=== PATIENT | female | born 1970 | race Caucasian/White ===

== ENCOUNTER 2018-03-22 00:10 | Outpatient (CLI) | payer BC, SELFPAY ==
--- NOTE | 2018-03-22 17:18 | DI.MAMMO_ITS ---
SYMPTOM/DIAGNOSIS: SCREENING, Z12.31 MAMMOGRAMS: Mammograms were interpreted according to the usual protocol including computer analysis with CAD system, tomosynthesis and C view imaging. Comparison is with prior examinations. There are scattered nodules in both breasts, which appear stable. No suspicious masses or microcalcifications are seen. The skin and axillae are unremarkable. IMPRESSION: No evidence for malignancy. Yearly mammography is recommended. Category 2, breast density B. MQSA ASSESSMENT OF FINDINGS: Negative with benign findings. Category 2. Patient will receive a letter notifying them of these results. BI-RADS category B. There are scattered areas of fibroglandular density.
== END 2018-03-22 00:30 ==
PROVIDERS: PCP Family Medicine; Visit Provider Nurse Practitioner Family
DX: Z12.31 Encounter for screening mammogram for malignant neoplasm of breast (principal)
CPT/HCPCS: 77063; 77067

== ENCOUNTER 2019-01-10 12:10 | Outpatient (REF) | payer BC, SELFPAY ==
[2019-01-10 13:02] LABS: Glucose 115 mg/dL (70-100); TSH (W/Ref FT4) 3.45 uIU/mL (0.358-3.74)
[2019-01-10 14:15] LABS: Calculated LDL 154; Cholesterol 221 mg/dL (50-200); HDL Cholesterol 52 mg/dL (40-60); Triglyceride 75 mg/dL (30-150)
[2019-01-12 05:20] LABS: Vitamin D 25 Total 21.2 ng/ml (30-100)
== END 2019-01-10 12:30 ==
LOC: NCHCN 12:10
PROVIDERS: PCP Family Medicine; Visit Provider Nurse Practitioner
DX: E03.9 Hypothyroidism, unspecified (principal); E78.5 Hyperlipidemia, unspecified; Z13.21 Encounter for screening for nutritional disorder
CPT/HCPCS: 80061; 82306; 82947; 83721; 84443

== ENCOUNTER 2019-02-01 13:57 | Outpatient (REF) | payer BC, SELFPAY ==
[2019-02-01 20:35] LABS: Hemoglobin A1C 5.7 % (4.5-6.2)
== END 2019-02-01 14:17 ==
LOC: NCHCN 13:57
PROVIDERS: PCP Family Medicine; Visit Provider Nurse Practitioner
DX: E73.9 Lactose intolerance, unspecified (principal)
CPT/HCPCS: 83036

== ENCOUNTER 2019-02-13 14:19 | Outpatient (REF) | payer BC, SELFPAY ==
--- NOTE | 2019-02-13 13:30 | PAPFT_PTH ---
PATIENT: Lisa Maddox LOC: [facility] U#:[id number] AGE/SX: 49/F ROOM: RE02/13/[address]: SOCO Quinonez : 1970 BED: DIS: 02/13/2019 SPEC #: [id number] RECD: 02/13/19 18:00 STATUS: RILEY RERahul #: [id number] JIGNESH: 02/13/19 13:[address]: Ivory Sousa DEPT: [facility] Cytology RECD BY: Karyn Villegas ENTERED: 02/13/19 18:00 SP TYPE: PAPFT OTHR DR: Alina Singh Tissues: 1 - CX/ENDOCX FOR PAP SMEARS Procedures: PAP THIN PREP/UVM Screening HPV DNA PROBE Comments: [id number]
== END 2019-02-13 14:39 ==
LOC: LBN 14:19
PROVIDERS: PCP Family Medicine; Visit Provider Nurse Practitioner Family
DX: Z12.4 Encounter for screening for malignant neoplasm of cervix (principal); Z11.51 Encounter for screening for human papillomavirus (HPV)
CPT/HCPCS: 88142; 87624

== ENCOUNTER 2019-02-16 00:32 | Outpatient (CLI) | payer BC, SELFPAY ==
--- NOTE | 2019-02-16 12:50 | DI.US_ITS ---
SYMPTOMS/DIAGNOSIS: LLQ PAIN PER PT PELVIC ULTRASOUND: The uterus measures 10.6 cm in length, 6.1 cm in height and 6.5 cm in width with an endometrial stripe thickness of 14.5 mm. There are multiple Nabothian cysts. The right ovary measures 3.5 x 2.3 x 1.9 cm. The left ovary measures 3.4 x 1.5 z 1.7 cm. There is no evidence of cul-de-sac fluid. SUMMARY: As noted above there are multiple Nabothian cysts. The examination is otherwise unremarkable.
== END 2019-02-16 00:52 ==
PROVIDERS: PCP Family Medicine; Visit Provider Nurse Practitioner Family
DX: R10.32 Left lower quadrant pain (principal); N88.8 Other specified noninflammatory disorders of cervix uteri
CPT/HCPCS: 76830; 76856

== ENCOUNTER 2019-02-22 14:04 | Outpatient (REF) | payer BC, SELFPAY ==
--- NOTE | 2019-02-22 13:30 | ENDOMET_PTH ---
PATIENT: Lisa Maddox LOC: [facility] U#:[id number] AGE/SX: 49/F ROOM: RE02/22/[address]: Keya Moore MD : 1970 BED: DIS: 02/22/2019 SPEC #: [id number] RECD: 02/22/19 17:37 STATUS: RILEY REQ #: [id number] JIGNESH: 02/22/19 13:[address]: Keya Moore DEPT: Surgical Specimen RECD BY: Karyn Villegas ENTERED: 02/22/19 17:38 SP TYPE: Endomet OTHR DR: Alina Singh Tissues: 1 - ENDOMETRIUM BX/CURRETTE Procedures: GROSS AND MICRO LEVEL 4 Comments: [id number]
== END 2019-02-22 14:24 ==
LOC: LBN 14:04
PROVIDERS: PCP Family Medicine; Visit Provider Obstetrics & Gynecology
DX: N85.8 Other specified noninflammatory disorders of uterus (principal); N83.8 Other noninflammatory disorders of ovary, fallopian tube and broad ligament; N93.8 Other specified abnormal uterine and vaginal bleeding; Z80.49 Family history of malignant neoplasm of other genital organs
CPT/HCPCS: 88305

== ENCOUNTER 2019-04-21 07:00 | Outpatient (CLI) | payer BC, SELFPAY ==
[2019-04-21] MEDS: Omnipaque 350 MG/ML 100 ML BTL IV (11:15)
--- NOTE | 2019-04-21 11:25 | DI.CT_ITS ---
EXAM: CT ABDOMEN PELVIS WO/W CLINICAL HISTORY: LUQ ABD PAIN,R10.12,LT FLANK PAIN,R10.9,HEMATURIA,R31.9. TECHNIQUE: CT examination of the abdomen and pelvis was performed utilizing CT urogram protocol wi th noncontrast scan followed by scans at venous phase and approximately 10 minutes delay. COMPARISON: No exams were available for comparison FINDINGS:: Images obtained through the lung bases are unremarkable. Liver unremarkable in appearan ce except for a couple of tiny presumed hepatic cysts. Gallbladder has been surgically removed. Spl een is unremarkable. Pancreas appears intact. No biliary dilatation seen. Abdominal aorta and corona r abdominal vessels appear normal. No significant abdominal wall hernia seen. No abdominal or pelvi c adenopathy. Appendix is normal. No evidence of diverticulitis or bowel obstruction. 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 Adrenals appear normal bilaterally. There is presumed tiny right cortical renal cysts and a presumed approximately 1 cm in diameter upper pole left renal angiomyolipoma which is of fat attenuation. No renal or ureteral calcification iden tified. Normal symmetrical enhancement of renal cortex bilaterally. Normal appearance of collecting systems, ureters and urinary bladder. IMPRESSION: Essentially negative CT urogram. 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
== END 2019-04-21 07:20 ==
PROVIDERS: PCP Family Medicine; Visit Provider Nurse Practitioner Family
DX: R10.12 Left upper quadrant pain (principal); R10.32 Left lower quadrant pain; R31.9 Hematuria, unspecified; D17.71 Benign lipomatous neoplasm of kidney
CPT/HCPCS: 74178; J3490

== ENCOUNTER 2020-01-15 12:11 | Outpatient (REF) | payer BC, SELFPAY ==
[2020-01-15 19:48] LABS: Hemoglobin A1C 5.5 % (3.8-5.6)
[2020-01-15 19:49] LABS: ALT 39 U/L (14-59); AST 21 U/L (15-37); Alkaline Phosphatase 101 U/L (46-116); Anion Gap 11.2 mmol/L (3-11); BUN 16 mg/dL (7-18); Bilirubin, Total 0.4 mg/dL (0.2-1.0); CO2 23.8 mmol/L (21.0-32.0); CREATININE 1.07 mg/dL (0.55-1.02); Calcium 9.4 mg/dL (8.5-10.1); Calculated LDL 173 mg/dL (<100); Chloride 105 mmol/L (98-107); Cholesterol 248 mg/dL (<200); Glucose 137 mg/dL (74-106); HDL Cholesterol 56 mg/dL (40-60); Potassium 4.3 mmol/L (3.5-5.1); Sodium 140 mmol/L (136-145); Total Protein 7.4 g/dL (6.4-8.2); Triglyceride 99 mg/dL (<150)
== END 2020-01-15 12:31 ==
LOC: NCHCN 12:11
PROVIDERS: PCP Family Medicine; Visit Provider Nurse Practitioner
DX: R10.12 Left upper quadrant pain (principal)
CPT/HCPCS: 80053; 80061; 83036

== ENCOUNTER 2020-11-13 01:28 | Outpatient (CLI) | payer BC, SELFPAY ==
--- NOTE | 2020-11-13 11:16 | DI.RAD_ITS ---
EXAM: XR LUMBAR SPINE COMPLETE CLINICAL HISTORY: RT SCIATICA, BACK PAIN, M54.31. TECHNIQUE: 2D digital imaging was performed. COMPARISON: No exams were available for comparison FINDINGS: No evidence of fracture or listhesis. No pars defects. There is mild narrowing of L5-S1 disc space. Anterior osseous lipping is noted at L2-3 level with no rmal disc space at this level. No significant scoliosis. No osseous lesions. There is no prominent facet arthropathy. Sacroiliac joints appear unremarkable. IMPRESSION: Mild findings as described above. DATA REPOSITORY: RADIATION DOSE DELIVERED:
== END 2020-11-13 01:48 ==
PROVIDERS: PCP Family Medicine; Visit Provider Physician Assistant
DX: M54.13 Radiculopathy, cervicothoracic region (principal); M51.17 Intervertebral disc disorders with radiculopathy, lumbosacral region
CPT/HCPCS: 72110

== ENCOUNTER 2020-11-18 08:01 | Emergency (ER) | payer BC, SELFPAY ==
[2020-11-18 08:07] VITALS: BP 153/89; PULSE 108; RESP 18; TEMP 36.3; O2SAT 96
--- NOTE | 2020-11-18 08:34 | ED.GENADUL_ITS ---
Discharge Plan Disposition Patient Disposition: HOME Condition: Good Discharge Details Clinical Impression: Lumbosacral radiculitis Primary Care Provider: Alina Singh ED Provider: Karyn Aguilar Home Meds and New Rx's Prescriptions: New prednisone 10 mg tablet 10 mg PO DAILY Qty: 73 RF: 0 oxycodone 5 mg capsule 5 mg PO Q8H PRNQty: 7 RF: 0 No Action ranitidine HCl [Heartburn Relief (ranitidine)] 75 mg tablet 75 mg PO DAILY RF: 0 Strovite 1 EACH tablet 1 tab-cap PO DAILY RF: 0 cholecalciferol (vitamin D3) 1,000 UNIT capsule 1,000 unit PO DAILY RF: 0 flaxseed oil 1,000 MG capsule 1,000 mg PO RF: 0 lidocaine 5 % adhesive patch,medicated 1 patch transdermal DAILY RF: 0 pregabalin 75 mg capsule 74 mg PO TID RF: 0 Discharge Instructions Additional Instructions: Take Tylenol 650 mg to 1 g every 6-8 hours Do not exceed 4 g of Tylenol per day Do not take ibuprofen while taking prednisone, you will be on a prednisone taper for approximately 18 days, I recommend taking this medication in the morning as it can make you have some difficulty sleeping I do recommend close outpatient follow-up with your primary care physician, within the next 5 days Should you develop fever, chills, worsening pain despite interventions, changes in bowel or bladder or groin numbness, or weakness in your right lower extremity, you must return immediately for reevaluation You may take oxycodone in the evening, this medication is addictive and can make you constipated, use caution Do not drive for 8 hours after taking this medication You may need an outpatient MRI at the discretion of your doctor, please follow- up and schedule an appointment in 5 days I have also given you a physical therapy referral Stand Alone Forms: Physical Therapy Referral HPI This 50-year-old female presents with reports of pain in her lumbar spine radiating down through her gluteal muscle into her right outer foot. This started a day after moving. She denies any weakness but does have paresthesias in her entire foot sparing her great toe. She also states her heel is numb. She denies any changes in bowel or bladder. She denies any fever or chills. She denies any history of IV drug abuse. Denies any urinary symptoms. Denies history of immunosuppressive state. Denies any abdominal pain, chest pain, shortness of breath General Date/Time Provider Initiated Documentation: 11/18/20 08:08 . Related Data Home Medications Medication Instructions Recorded Confirmed vitamin B comp with vit C no.6 1 tab-cap PO DAILY tab-cap 11/08/13 11/18/20 [Strovite] cholecalciferol (vitamin D3) 1,000 unit PO DAILY 01/21/17 02/13/19 flaxseed oil 1,000 mg PO 02/10/18 02/13/19 ranitidine HCl 75 mg tablet 75 mg PO DAILY 02/22/19 02/22/19 lidocaine 1 patch TRANSDERMAL DAILY 11/18/20 11/18/20 oxycodone 5 mg PO Q8H PRN #7 cap 11/18/20 prednisone 10 mg PO DAILY #73 tab 11/18/20 pregabalin 74 mg PO TID 11/18/20 11/18/20 Previous Rx's Medication Instructions Recorded oxycodone 5 mg PO Q8H PRN #7 cap 11/18/20 prednisone 10 mg PO DAILY #73 tab 11/18/20 Allergies Allergy/AdvReac Type Severity Reaction Status Date / Time diphenhydramine HCl Allergy Severe skin Verified 11/18/20 08:11 [From Benadryl] reaction skin looks like a severe sunburn. Sulfa (Sulfonamide Allergy Severe rash Verified 11/18/20 08:11 Antibiotics) codeine AdvReac Severe vomiting Verified 11/18/20 08:11 General Stated Complaint: Nk/Back Pain COLLINS: 4 Review of Systems Narrative: Review of systems obtained x7 aside from where indicated in HPI [facility] Surgical History (Updated 05/04/18 @ 14:35 by [employer] [place]) section 2002 Cholecystectomy 2007 Family History Mother Diabetes Heart disease Hyperlipidemia Protein C deficiency Mother is a Ignacio Father Diabetes Hyperlipidemia Sister Diabetes Uterine cancer Sister Uterine cancer Social History Smoking/Tobacco Use Status: Never Smoking risk assessment performed?: Yes Alcohol Intake: current Alcohol Intake frequency: holidays/special occasions only Drug use: Never Substance use type: does not use Do you feel safe at home: Yes Do you feel safe in your relationship?: Yes Female Reproductive History Menstrual control method: none History History 2 Para 1 Hx # Term Pregnancies Multiple births Hx # Pregnancies Ectopic pregnancies AB induced Hx Number of Living Children AB spontaneous Exam Const General: cooperative and no acute distress Resp Effort & Inspection: normal respiratory effort Auscultation: clear to auscultation bilaterally Cardio Rate: regular rate Rhythm: regular rhythm GI Inspection: normal to inspection Auscultation: normal bowel sounds Other: No CVA tenderness, no abdominal bruit or pulsatile mass Back/Spine/Pelvis Other: Lumbar spine tenderness on exam Skin General skin exam: no rashes or lesions noted Neuro General: patient oriented x3 Cranial Nerves: CN's II-XI intact bilaterally Other: Antalgic gait, diminished sensation right dorsum of patient's foot and the right lateral aspect of lower leg along the fibular aspect, no thigh involvement, no saddle anesthesia, strength 5 out of 5 to bilateral lower extremities, DTRs intact to bilateral lower extremities, distal pulses intact to bilateral lower extremities Course Vital Signs Vital signs: Vital Signs Temperature 36.3 C L 11/18/20 08:07 Pulse 108 H 11/18/20 08:07 Respiratory Rate 18 11/18/20 08:07 Blood Pressure 153/89 H 11/18/20 08:07 Pulse Oximetry 96 11/18/20 08:07 Temperature 36.3 C L 11/18/20 08:07 Temperature Source Temporal Artery Scan 11/18/20 08:07 Pulse 108 H 11/18/20 08:07 Respiratory Rate 18 11/18/20 08:07 Respiratory Effort Non-Labored 11/18/20 08:14 Blood Pressure 153/89 H 11/18/20 08:07 Blood Pressure Position Sitting 11/18/20 08:07 Pulse Oximetry 96 11/18/20 08:07 Oxygen Delivery Method Room Air 11/18/20 08:07 Oxygen Flow Rate 0 11/18/20 08:07 Pain Level 4 11/18/20 08:07
[2020-11-18 09:03] VITALS: PULSE 88
== END 2020-11-18 09:00 | disposition home or self-care (01) ==
PROVIDERS: Emergency Provider Physician Assistant; PCP Family Medicine
DX: M54.17 Radiculopathy, lumbosacral region (principal)
CPT/HCPCS: 99283

== ENCOUNTER 2020-12-09 12:35 | Emergency (ER) | payer BC, SELFPAY ==
[2020-12-09] VITALS (12 sets, daily range): BP systolic 99–133; BP diastolic 64–85; PULSE 73–101; RESP 15–20; TEMP 36.7; O2SAT 94–98
--- NOTE | 2020-12-09 12:42 | ED.GENADUL_ITS ---
Discharge Plan Disposition Patient Disposition: HOME Condition: Stable Discharge Details Clinical Impression: Lumbar disc herniation, Severe back pain, Right lumbar radiculopathy Primary Care Provider: Alina Singh ED Provider: Karan Wallace Home Meds and New Rx's Prescriptions: New oxycodone 5 mg tablet 5 mg PO Q6H PRN (Reason: pain) Qty: 10 RF: 0 methocarbamol 500 mg tablet 500 mg PO Q6H PRN (Reason: muscle spasm) Qty: 20 RF: 0 prednisone 20 mg tablet See Rx Instructions .ROUTE .COMPLEX Qty: 18 RF: 0 Continued Strovite 1 EACH tablet 1 tab-cap PO DAILY RF: 0 cholecalciferol (vitamin D3) 1,000 UNIT capsule 1,000 unit PO DAILY RF: 0 flaxseed oil 1,000 MG capsule 1,000 mg PO DAILY RF: 0 lidocaine 5 % adhesive patch,medicated 1 patch transdermal DAILY RF: 0 pregabalin 75 mg capsule 74 mg PO TID RF: 0 prednisone 10 mg tablet 10 mg PO DAILY Qty: 73 RF: 0 cyclobenzaprine 10 mg tablet 10 mg PO HS RF: 0 Discharge Instructions Instructions: Lumbar Disc Herniation (ED) Additional Instructions: Alternate ice and heat to the affected area(s) several times daily for 20 minutes at a time. Alternate tylenol and motrin as needed and directed for pain. Your prescriptions has been sent electronically to your pharmacy. Call the pharmacy to make sure your prescriptions are ready before pickup. Take the prescriptions as directed. Follow-up with your primary care doctor in 1 week for referral to orthopedics for further evaluation. Return to the emergency department with any worsening or new concerning symptoms such as bowel or bladder incontinence, pelvic numbness, leg weakness or any other concerns. Referrals: Cuauhtemoc Hernandez MD [ [facility] STAFF PHYSICIAN] - Discharge Data Discharge Physician: Ann Marie Garcia Medical Decision Making <Ann Marie Garcia DO - Last Filed: 12/09/20 15:58> 1245 -- 50-year-old female presents with right-sided lower back pain with radiation to her right leg for the past month. Seen here earlier this month and diagnosed with lumbosacral radiculitis and treated with oral steroids and oxycodone without relief. No cauda equina symptoms other than right leg pain and paresthesias. She has no focal deficits. She is neurovascular intact. She appears quite uncomfortable. We will place an IV, give IV Toradol, Decadron, morphine and Valium p.o. And obtain a CT lumbar spine. Serum negative. 1400 -- Patient reassessed and she feels much better. 1535 -- CT lumbar spine notes a large right-sided bulge at L5-S1 likely consistent with a lumbar spine disc herniation. Discussed with MRI and they state they can get an outpatient MRI in the next several weeks. They are able to do it today which considering patient's level of pain will be beneficial if she needs urgent referral sooner than later. Case endorsed to Dr. Wallace to follow-up on lumbar spine MRI and final disposition. If patient's pain remains controlled and no emergent findings on MRI, will plan for discharged home with pain control and follow-up. Medical Records Medical records reviewed: Yes I reviewed the patient's medical records. <Karan Wallace MD - Last Filed: 12/09/20 16:57> Received signout from Dr. Garcia. Please see her note regarding details of the case. Patient improved. Her MRI shows an L5-S1 right disc herniation. See formal report. As per Dr. Mendez's reading, follow-up with spine clinic recommended and we will ask care management to arrange. Patient be discharged with analgesics for home as per Dr. Garcia. HPI <Ann Marie Garcia DO - Last Filed: 12/09/20 15:58> General Mode of arrival: ambulatory . Date/Time Provider Initiated Documentation: 12/09/20 12:40 . Limitations to Documentation: no limitations . Information obtained by: patient . HPI Narrative: Patient is a 50-year-old female who presents with a complaint of right-sided back pain for the past month that is progressively worsening. She states the pain is in her right lower back and buttock with radiation down her right leg. She does admit to some tingling and numbness in her right leg but denies any bowel or bladder incontinence, saddle anesthesia or leg weakness. She had a lumbar spine x-ray last month which noted mild canal narrowing. She was seen here in the ED earlier this month and diagnosed with lumbosacral radiculitis and treated with steroids and narcotic pain medication. She denies any relief after this treatment regimen. She states the pain is persisting. She states she is being followed by her primary care doctor and has plans for physical therapy soon. She states her primary care doctor likely cannot order the MRI until she starts physical therapy. Related Data Home Medications Medication Instructions Recorded Confirmed Strovite 1 tab-cap PO DAILY tab-cap 11/08/13 12/09/20 cholecalciferol (vitamin D3) 1,000 unit PO DAILY 01/21/17 12/09/20 flaxseed oil 1,000 mg PO DAILY 02/10/18 12/09/20 lidocaine 1 patch TRANSDERMAL DAILY 11/18/20 12/09/20 prednisone 10 mg PO DAILY #73 tab 11/18/20 12/09/20 pregabalin 74 mg PO TID 11/18/20 12/09/20 cyclobenzaprine 10 mg PO HS 12/09/20 12/09/20 methocarbamol 500 mg PO Q6H PRN #20 tab 12/09/20 oxycodone 5 mg PO Q6H PRN #10 tab 12/09/20 prednisone See Rx Instructions .ROUTE 12/09/20 .COMPLEX #18 tab Previous Rx's Medication Instructions Recorded prednisone 10 mg PO DAILY #73 tab 11/18/20 methocarbamol 500 mg PO Q6H PRN #20 tab 12/09/20 oxycodone 5 mg PO Q6H PRN #10 tab 12/09/20 prednisone See Rx Instructions .ROUTE 12/09/20 .COMPLEX #18 tab Allergies Allergy/AdvReac Type Severity Reaction Status Date / Time diphenhydramine HCl Allergy Severe skin Verified 12/09/20 12:47 [From Benadryl] reaction skin looks like a severe sunburn. Sulfa (Sulfonamide Allergy Severe rash Verified 12/09/20 12:47 Antibiotics) codeine AdvReac Severe vomiting Verified 12/09/20 12:47 General COLLINS: 4 Review of Systems <Ann Marie Garcia DO - Last Filed: 12/09/20 15:58> All systems reviewed & are unremarkable except as noted in HPI and below Constitutional Constitutional: Reports as per HPI, Denies chills and Denies fever(s) Eyes Eyes: Denies blurry vision ENT Ears, Nose, Mouth, and Throat: Denies dizziness, Denies sore throat and Denies throat swelling Cardiovascular Cardiovascular: Denies chest pain and Denies dyspnea Respiratory Respiratory: Denies cough and Denies dyspnea Gastrointestinal Gastrointestinal: Denies abdominal pain, Denies diarrhea and Denies vomiting Genitourinary Genitourinary: Denies hematuria and Denies dysuria Musculoskeletal Musculoskeletal: Reports back pain and Denies numbness Integumentary/Breasts Skin/Breast: Denies lesions and Denies rash Neurologic Neurologic: Denies dizziness, Denies localized weakness and Denies numbness Allergic/Immunologic Allergic/Immunologic: Denies throat swelling PFSH <Ann Marie Garcia DO - Last Filed: 12/09/20 15:58> Medical History (Updated 12/09/20 @ 15:49 by Ann Marie Garcia DO) Abnormal uterine bleeding (AUB) Obesity (11/07/12) Surgical History (Updated 05/04/18 @ 14:35 by [employer] [place]) section 2001 Cholecystectomy 2006 Family History Mother Diabetes Heart disease Hyperlipidemia Protein C deficiency Mother is a Ignacio Father Diabetes Hyperlipidemia Sister Diabetes Uterine cancer Sister Uterine cancer Social History Smoking/Tobacco Use Status: Never Smoking risk assessment performed?: Yes Alcohol Intake: current Alcohol Intake frequency: holidays/special occasions only Drug use: Never Substance use type: does not use Do you feel safe at home: Yes Do you feel safe in your relationship?: Yes Female Reproductive History Menstrual control method: none History History 2 Para 1 Hx # Term Pregnancies Multiple births Hx # Pregnancies Ectopic pregnancies AB induced Hx Number of Living Children AB spontaneous Exam <Ann Marie Garcia DO - Last Filed: 12/09/20 15:58> Const General: cooperative, healthy appearing and no acute distress HENTX Head: normal to inspection Face and sinus: normal facial exam Eyes General: appearance normal, both eyes and all related structures EOM: EOM intact bilaterally Neck Neck: normal visual inspection and No submandibular swelling Lymphatic: no lymphadenopathy noted Chest Chest: normal inspection of the chest and no tenderness Resp Effort & Inspection: normal respiratory effort and able to speak in complete sentences Auscultation: clear to auscultation bilaterally Cardio Rate: regular rate Rhythm: regular rhythm GI Inspection: normal to inspection Palpation: soft, not firm, not rigid and nontender Auscultation: normal bowel sounds Back/Spine/Pelvis Thoracic/Lumbar Spine: thoracic and lumbar spine normal to inspection Pelvis: no pain with anterior-posterior compression Skin General skin exam: no rashes or lesions noted Neuro General: patient alert, patient awake and patient oriented x3 Cognition: normal cognition Speech: speech normal Motor: muscle tone normal throughout Sensory Exam: no sensory deficits noted Extrem General: normal to inspection, full ROM, capillary refill normal, no calf ten derness bilaterally and no edema Psych Appearance: grossly normal Mental Status: mental status grossly normal Speech and Movement: speech and movement normal Affect: normal affect Sign Out <Ann Marie Garcia DO - Last Filed: 12/09/20 15:58> Sign Out Data: Sign Out Comment: Probable lumbar disc herniation noted on CT lumbar spine. Please follow-up on lumbar spine MRI. If patient's pain remains controlled and no emergent findings on MRI, will discharge to home with pain control with plan for follow-up. Last updated by Ann Marie Garcia DO at 12/09/20 15:48
--- NOTE | 2020-12-09 13:00 | DI.CT_ITS ---
Exam(s) CT LUMBAR SPINE WO EXAM: CT LUMBAR SPINE WO CLINICAL HISTORY: lower back pain, radiation to R leg. TECHNIQUE: Imaging Protocol: Axial computed tomography images with coronal and sagittal reformatted images were created and reviewed COMPARISON: CR XR LUMBAR SPINE COMPLETE from 11/13/2020 FINDINGS: Bones: There are no fractures, listhesis, nor pars defects. There are no lytic osseous lesions evide nt. INDIVIDUAL LEVELS: T12-L1:No disc herniation nor canal stenosis. Facet joints unremarkable. No foraminal stenosis. L1-2: No disc herniation nor canal stenosis. Facet joints unremarkable. No foraminal stenosis. L2-3: No disc herniation nor canal stenosis. Facet joints unremarkable. No Foraminal stenosis L3-4: No disc herniation nor canal stenosis. Facet joints unremarkable. No foraminal stenosis. L4-5: No disc herniation nor canal stenosis. L5-S1: There is vacuum phenomenon seen within this disc space. Disc space is slightly diminished. There is a posterolateral right sided mass in the epidural space at this level which is possibly a la rge disc herniation. This tracks down behind the right side of S1 vertebral body for a distance of a lmost 2 cm. Mild narrowing of the exiting right neural foramen. The visualized sacroiliac joints and sacrum appear unremarkable. PARASPINAL SOFT TISSUES: Visualized paraspinal tissues appear unremarkable. IMPRESSION: 1. Large L5-S1 right-sided finding which is probably a large disc herniation but will require MRI for added specificity. RADIATION DOSE DELIVERED: 1,363.72mGy.cm Total DLP DATA REPOSITORY: All CT scans at this facility are submitted to the National Radiology Data Registry (NRDR) Dose Index Registry (DIR) with the [employer] ([employer]). RADIATION OPTIMIZATION: All CT scans at this facility use at least one of these dose optimization te chniques: automated exposure control; mA and/or kV adjustment per patient size (includes targeted exa ms where dose is matched to clinical indication); or iterative reconstruction.
[2020-12-09] MEDS: diazePAM 5 MG TAB PO (13:29)
[2020-12-09] MEDS: Dexamethasone 10 MG/ML VIAL IVP (13:29)
[2020-12-09] MEDS: Ketorolac 30 MG/ML VIAL IVP (13:30)
[2020-12-09 13:58] LABS: HCG Qual (Serum) Negative
--- NOTE | 2020-12-09 15:30 | DI.MRI_ITS ---
Exam(s) MR LUMBAR SPINE WO EXAM: MR LUMBAR SPINE WO CLINICAL HISTORY: R lower back, buttock, R leg numb/painful. TECHNIQUE: Multiplanar multisequence MRI of the Lumbar spine was performed. COMPARISON: CT scan earlier same date was reviewed FINDINGS: Conus medullaris is at normal level. There is no evidence of conus mass nor subjacent clumping of in trathecal nerve roots to suggest arachnoiditis. The distal thecal sac is at the upper S1 level..Ther e is no evidence of Tarlov intrasacral cyst. Bones:There are no fractures nor ominous osseous lesions in the lumbar vertebral bodies and visualize d sacrum. With respect to the individual levels... T12-L1: Unremarkable L1-2: Normal disc height and signal. No disc herniation nor central canal stenosis.No foraminal steno sis L2-3: Normal disc height. No disc herniation nor central canal stenosis.No foraminal stenosis.No face t arthropathy. L3-4: Normal disc height. There is a lateral left disc bulge in the floor of the exiting left neural foramen. Does not result in significant foraminal stenosis.Benign-appearing intraosseous hemangioma is noted in the right side of L3 vertebral body.No facet arthropathy. L4-5: Normal disc height and signal. No disc herniation or spinal canal stenosis. No foraminal sten osis. No significant facet arthropathy. L5-S1: Mild loss of disc height. Modic type 1 sub endplate marrow edema changes. There is broad christina ular bulging at this level. There is a superimposed large disc herniation right side at this level w hich extends posteriorly 1.3 cm, is approximately 1.5 cm wide, and also extends caudally on the right side for distance of 2.5 cm behind the right side of S1 vertebral body and extending down the right- sided nerve root at this level. There is no facet arthropathy at this level. Soft tissues: paraspinal soft tissues appear unremarkable. IMPRESSION: 1. The main finding here is what is probably a very large disc herniation on the right side at L5-S1 level with measurements as above and extending down behind the right side of S1 vertebral body and fo llowing the exiting nerve root caudally. Although this is most probably a large disc herniation, can not exclude the possibility of a nerve root tumor. Recommend neurosurgery follow-up and contrast inf used MRI. 2. 3. DATA REPOSITORY:
--- NOTE | 2020-12-09 16:56 | NUR.NOTE ---
Nursing Note: Referral given to Care Management for follow up with [facility] [place] [facility] in 1 to 2 weeks. Alicia Mixon
--- NOTE | 2020-12-10 12:23 | PDOC.ERCMPRO ---
- If Service Date Differs Date of service: 12/10/20 Time of Service: 12:23 Care Management Progress Note Lisa is seen in the ED for back pain. At the request of ED provider, CM coordinates a referral to [facility]. Lisa has BCBS for insurance.
== END 2020-12-09 17:14 | disposition home or self-care (01) ==
PROVIDERS: Physician Assistant; Emergency Provider Emergency Medicine; PCP Family Medicine
DX: M51.16 Intervertebral disc disorders with radiculopathy, lumbar region (principal)
CPT/HCPCS: 96374; 96375; 99284; 72131; 72148; 84703; J1100; J1885

== ENCOUNTER 2021-11-24 10:20 | Day surgery (SDC) | payer BC, SELFPAY ==
--- NOTE | 2021-11-24 06:44 | W.COLOREPORT ---
Colonoscopy Report Date of procedure: 11/24/21 Pre-op diagnosis general: colon cancer screening Post-op diagnosis procedure note: other (mild diverticulosis) Procedure: Colonoscopy Surgeon: Brenda Del Cid Anesthesia Type: General:No Airway Estimated blood loss (mL): 0 Pathology: none sent Complications: None Disposition: same day Indications: The patient is here for Colonoscopy pre-op. She has no family history of colon cancer. She has not had any bowel habit changes. -Discussed colonoscopy bowel prep as well as the procedure. Discussed possible complications of the procedure to include bleeding, pain, perforation, missed small lesion/polyp, sore throat, aspiration and adverse reaction to the medications. Questions were answered to patient?s satisfaction. No guarantees were implied or given.? P// Colonoscopy under sedation. Prep: Miralax/Dulcolax Procedure Start Time: 12:23 Procedure End Time: 12:43 Retraction Time: 9 minutes Findings: mild sigmoid diverticulosis Procedure Description: After informed consent was obtained the patient was taken to the procedure room and placed in a left decubitous position. Monitors were applied and a time out was done. The patients name, date of , procedure, allergies to medications and metal in their body was reviewed. The patient was then sedated. Once sedated and comfortable a rectal exam was done. External exam was normal. Internal exam revealed a normal sphincter tone and no palpable masses. The scope was then introduced and retro-flexed. No internal hemorrhoids, polyps or masses were identified on retro-flexion. The scope was then advanced to the cecum without difficulty. The ileocecal vlave and appendiceal orifice were identified. The prep was adequate. The scope was advanced into the terminal ileum which was normal. The scope was then slowly retracted over 9 minutes back into the rectum. There were no polyps. There was mild sigmoid diverticulosis noted. The scope was removed and the patient was woken up and taken back to Same day surgery in stable condition. The patient tolerated the procedure well and there were no immediate complications. Follow up: The patient should follow up in 10 years unless they develop changes in bowel habits or other new gastrointestinal complaints.
--- NOTE | 2021-11-24 06:45 | W.PM.DSUDISC ---
Discharge Plan Disposition Patient Disposition: HOME Condition: Good Discharge Details Reason For Visit: Colonoscopy Attending Provider: Brenda Del Cid Primary Care Provider: Alina Singh Home Meds and New Rx's Prescriptions: Continued cholecalciferol (vitamin D3) 1,000 UNIT capsule 5,000 unit PO Q3D 0RF clotrimazole-betamethasone 1-0.05 % cream 1 applic topical BID 0RF B-complex with vitamin C Tablet 1 tab PO DAILY 0RF omega-3 fatty acids Capsule 1,000 mg PO DAILY 0RF Discontinued bisacodyl [Dulcolax (bisacodyl)] 5 mg tablet,delayed release (DR/EC) 5 mg PO ONCE Qty: 4 0RF Rx Instructions: Take according to provider's instructions for colonoscopy prep. polyethylene glycol 3350 17 gram/dose powder 17 g PO ONCE Qty: 238 0RF Rx Instructions: To be taken as directed by prescriber's office for colonoscopy prep. Discharge Instructions Instructions: Diverticulosis (DC) Additional Instructions: Findings: mild diverticulosis Follow up: 10 years Please call if you develop: fevers >101.5 Nausea or Vomiting Abdominal pain that is not transient Rectal bleeding that is more then a tbsp A hard abdomen and inability to pass gas DAY SURGERY UNIT POST ENDOSCOPY INSTRUCTIONS Instructions for everyone who is given Anesthesia: For your safety, please do the following for the next 24 Hours: a. Do not drive or operate dangerous equipment b. Do not drink alcohol beverages or use any recreational drugs for the first 24 hours or while taking pain medications. The medications in your body may have a reaction that can be dangerous. c. Do not make any important decisions or sign any important papers 1. Generally there are no restrictions on your activity after a day or so has gone by, but you may feel a bit fatigued for a few days. 2. After you arrive home you may have a light meal and return to a normal diet as you can tolerate it without feeling sick to your stomach. 3. After surgery, you may feel pain or discomfort. This should be only transient, but if it persists please contact your doctor. 4. If there are any questions regarding the findings of your procedure, please feel free to contact your doctor. 6. If you are unable to contact your doctor with a problem, contact the hospital at [phone]. 7. Continue all your regular medications unless directed otherwise. I understand the above instructions and have no questions. Signature of Patient or Responsible Adult Escort Date/Time Name of Responsible Adult Escort Signature of Nurse Date/Time Activity:: Activity as Tolerated Diet:: high fiber Discharge Orders Discharge Orders: Discharge Order (Routine); Ordered 11/24/21 Ordered By: Brenda Del Cid
[2021-11-24 11:24] VITALS: BP 137/98; PULSE 98; RESP 16; TEMP 36.5; O2SAT 96
[2021-11-24] MEDS: Lactated Ringers 1,000 ML 80 ML IV (11:52)
--- NOTE | 2021-11-24 12:13 | W.ANESPRE ---
General Info Date of Service Date Performed: 11/24/21 Height: 5 ft 2 in Weight: 107.8 kg Body Mass Index (BMI): 43.4 Surgical Procedure: Operation Date: 11/24/21 12:20 Proposed Procedure Side Surgeon clare Del Cid MD Meds Allergies and Home Medications Allergies Allergy/AdvReac Type Severity Reaction Status Date / Time diphenhydramine HCl Allergy Severe skin Verified 11/24/21 11:11 [From Benadryl] reaction skin looks like a severe sunburn. Sulfa (Sulfonamide Allergy Severe rash Verified 11/24/21 11:11 Antibiotics) codeine AdvReac Severe vomiting Verified 11/24/21 11:11 Home Medication Medication Instructions Recorded cholecalciferol (vitamin D3) 25 5,000 unit PO Q3D 01/21/17 mcg (1,000 unit) capsule clotrimazole-betamethasone 1 1 applic TOPICAL BID 03/25/21 %-0.05 % topical cream bisacodyl 5 mg tablet,delayed 5 mg PO ONCE #4 tab 11/13/21 release (Dulcolax (bisacodyl)) polyethylene glycol 3350 17 17 g PO ONCE #238 g 11/13/21 gram/dose oral powder B-complex with vitamin C 1 tab PO DAILY 11/21/21 omega-3 fatty acids 1,000 mg PO DAILY 11/21/21 Current Visit Medications: Current Medications Generic Name Dose Route Start Last Admin Trade Name Freq PRN Reason Stop Dose Admin Hyoscyamine Sulfate 0.125 mg 11/24/21 06:46 Hyoscyamine 0.125 Mg Sl/Oral/Chew SL DIRECTED PRN Ringer's Solution 1,000 mls @ 80 mls/hr 11/24/21 06:00 11/24/21 11:52 IV 12/21/21 23:59 80 mls/hr INFUSION YAMILETH Administration IV Miscellaneous Supplies 1 each 11/24/21 06:00 Iv Access IV 12/21/21 23:59 DIRECTED YAMILETH Ondansetron HCl 4 mg 11/24/21 06:46 Ondansetron 4 Mg/2 Ml Vial IVP Q4H PRN PRN Nausea / Vomiting Sodium Chloride 0 ml 11/24/21 06:00 Normal Saline Flush 10 Ml Syr IV 12/21/21 23:59 PRN PRN Sodium Chloride 0 ml 11/24/21 06:00 Normal Saline 10 Ml Vial IJ 12/21/21 23:59 DIRECTED PRN Sterile Water 0 ml 11/24/21 06:00 Water,Injection,Sterile 10 Ml Vial IJ 12/21/21 23:59 DIRECTED PRN PFSH Active Problems Active Problems: Problem Status Onset Code Prediabetes R73.03 Screening for colon cancer Z12.11 Medical History Medical History Abnormal uterine bleeding (AUB) Family history of uterine cancer (11/26/14) 2 sisters Lumbar disc herniation Lumbosacral radiculitis Obesity (11/07/12) Pelvic pain Right lumbar radiculopathy Severe back pain Medical History Comments:: pt reported feeling very lightheaded last night 11/23/21 23:30 after prep. HCG negative 11/24/21. Pt reports history herniated disk (L5-S1). Pt requests pillow between legs when positioned on Left Side, Surgical History Surgical History section 2002 Cholecystectomy 2007 Tobacco Smoking/Tobacco Use Status: Never Alcohol Alcohol Intake: current Alcohol intake frequency: holidays/special occasions only Substance Use Substance use: Never Substance use type: does not use Prental History History 2 Para 1 Hx # Term Pregnancies Multiple births Hx # Pregnancies Ectopic pregnancies AB induced Hx Number of Living Children AB spontaneous Vital Signs and Lab Results Vital Signs Most Recent Vital Signs in EMR: Most Recent Vital Signs Temp Pulse Resp BP Pulse Ox 36.5 C 98 H 16 137/98 H 96 11/24/21 11:24 11/24/21 11:24 11/24/21 11:24 11/24/21 11:24 11/24/21 11:24 Point of Care Results Point of Care Results: POC- Test(urine) Negative 11/24/21 11:35 Lab Results Blood Type / Crossmatch: No Data to Display Complete Blood Count: No Data to Display Complete Metabolic Panel: No Data to Display Liver Function Panel: No Data to Display Coagulation Panel: No Data to Display Cardiac Panel: No Data to Display Arterial Blood Gas: No Data to Display Venous Blood Gas: No Data to Display Pancreas Panel: No Data to Display Thyroid Panel: No Data to Display Infectious Disease: No Data to Display Blood Cultures: No Data to Display Toxicology Panel: No Data to Display Panel: No Data to Display Anesthesia Assessment and Plan Anesthesia History Personal History: No History of Anesthesia Complications Family History: No Family History of Anesthesia Complications Exercise Tolerance Exercise Tolerance: Metabolic Equivalents>4 Pertinent Negatives Pertinent Negatives: No Symptoms of GERD, No Major Cardiovascular Symptoms or Complaints, No Major Pulmonary Symptoms or Complaints and No History of CVA/TIA Cardiac & Pulmonary Exam Cardiac Exam: Normal S1/S2 Heart Sounds Pulmonary Exam: Clear Bilateral Breath Sounds Implantable Cardiac Device Does patient have a Pacemaker or an ICD?: No Airway Exam Known Difficult Airway: No Mallampati Class: 1 Mouth Opening: Normal (> 3cm) Thyromental Distance: Greater than 3 cm Neck Range of Motion: Full ROM Neck Circumference: Normal Teeth Condition: Normal Dentition ASA Classification ASA Score: ASA 3 Emergency Case?: No NPO Status NPO Status: NPO Clears >2 hours, Solids >8 hours Status Status: Not Relevant due to Medical History Anesthesia Plan Resuscitation Status: Full Code Anesthesia Technique: General Anesthesia Airway Planned: Natural Airway Monitors Used: Standard Monitors
[2021-11-24 12:16] VITALS: BMI 43.4
[2021-11-24 12:50] VITALS: BP 121/77; PULSE 72; RESP 20; TEMP 36.3; O2SAT 98
--- NOTE | 2021-11-24 12:50 | W.ANESPOSTOP ---
Postoperative Evaluation Date, Time and Location Date Performed: 11/24/21 Time Performed: 12:51 Patient Location: Day Surgery Unit Vital Signs Most Recent Imported Vital Signs: Most Recent Vital Signs Temp Pulse Resp BP Pulse Ox 36.5 C 98 H 16 137/98 H 96 11/24/21 11:24 11/24/21 11:24 11/24/21 11:24 11/24/21 11:24 11/24/21 11:24 Most Recent Manually Entered Vital Signs: Adult Blood Pressure: 121/77 Heart Rate: 71 Respirations: 10 Oxygen Saturation (%): 98 Temperature (C): 36.8 C Pain Score (0-10 Scale): 0 Pain Score Most Recent Pain Score: Most Recent Pain Score Pain Level 0 11/24/21 11:24 Assessment Mental Status: Awake (Alert & Oriented to Patient Baseline) Airway and Respiratory Function: Patent airway with normal (patient baseline) respiratory exam Cardiovascular Function: Hemodynamically Stable Hydration Status: Adequately Hydrated Nausea & Vomiting: No Nausea or Vomiting Pain: Pt. Denies Any Pain Peripheral Nerve Block: Patient did not receive a nerve block
[2021-11-24 12:52] VITALS: BP 121/77; PULSE 71; RESP 10; TEMPC 36.8; O2SAT 98
[2021-11-24 13:30] VITALS: BP 119/91; PULSE 69; RESP 16; TEMP 36; O2SAT 97
== END 2021-11-24 14:14 | disposition home or self-care (01) ==
LOC: SUR 10:21
PROVIDERS: PCP Family Medicine; Visit Provider Surgery
PROC: 0DJD8ZZ Inspection of Lower Intestinal Tract, Via Natural or Artificial Opening Endoscopic (ICD-10-PCS; CPT 45378; principal; 2021-11-24 12:15)
DX: Z12.11 Encounter for screening for malignant neoplasm of colon (principal); K57.30 Diverticulosis of large intestine without perforation or abscess without bleeding; R73.03 Prediabetes; E66.9 Obesity, unspecified; Z68.41 Body mass index [BMI] 40.0-44.9, adult
CPT/HCPCS: 45378

== ENCOUNTER 2022-01-07 14:12 | Outpatient (REF) | payer BC, SELFPAY ==
[2022-01-07 21:05] LABS: ALT 29 U/L (14-59); AST 25 U/L (15-37); Albumin 3.8 g/dL (3.4-5.0); Alkaline Phosphatase 104 U/L (46-116); Anion Gap 8.7 mmol/L (3-11); BUN 20 mg/dL (7-18); Bilirubin, Total 0.5 mg/dL (0.2-1.0); CO2 26.3 mmol/L (21.0-32.0); Calcium 9.3 mg/dL (8.5-10.1); Chloride 103 mmol/L (98-107); Estimated GFR 58.69 (mL/min/1.73m2); FREE T4 0.91 ng/dL (0.76-1.46); Glucose 104 mg/dL (74-106); Potassium 4.1 mmol/L (3.5-5.1); Sodium 138 mmol/L (136-145); Total Protein 7.6 g/dL (6.4-8.2)
[2022-01-07 21:13] LABS: Hemoglobin A1C 5.7 % (<5.7)
[2022-01-07 21:20] LABS: Calculated LDL 126 mg/dL (<100); Cholesterol 206 mg/dL (<200); HDL Cholesterol 55 mg/dL (40-60); Triglyceride 127 mg/dL (<150)
== END 2022-01-07 14:13 | disposition home or self-care (01) ==
LOC: NCHCN 14:12
PROVIDERS: PCP Family Medicine; Visit Provider Physician Assistant
DX: E03.9 Hypothyroidism, unspecified (principal); R73.09 Other abnormal glucose; E78.5 Hyperlipidemia, unspecified
CPT/HCPCS: 80053; 80061; 83036; 84439; 84443

== ENCOUNTER → 2022-01-07 15:52 | Outpatient (CLI) | payer BC, SELFPAY ==
--- NOTE | 2022-01-07 | DI.RAD_ITS ---
Exam(s) XR HIP LT COMPLETE AP PELVIS EXAM: XR HIP LT COMPLETE AP PELVIS CLINICAL HISTORY: LT HIP JOINT PAIN-[id number]-HIP STIFFNESS WITH GROIN PAIN. TECHNIQUE: 2D digital imaging was performed of the left hip. Two views were obtained. AP pelvis an d lateral left hip views were obtained. COMPARISON: No exams were available for comparison FINDINGS: BONES: No acute fracture is present. No bony destructive lesion is seen. JOINTS: No dislocation present. There are moderate degenerative changes seen in the left hip with lorie nt space narrowing and periarticular spurring present. SOFT TISSUE: Normal. IMPRESSION: Moderate degenerative changes of the left hip. DATA REPOSITORY: RADIATION DOSE DELIVERED:
== END ==
PROVIDERS: PCP Family Medicine; Visit Provider Physician Assistant
DX: M16.12 Unilateral primary osteoarthritis, left hip (principal); M25.652 Stiffness of left hip, not elsewhere classified
CPT/HCPCS: 73502

== ENCOUNTER 2023-04-14 15:07 | Outpatient (REF) | payer BC, SELFPAY ==
[2023-04-14 17:13] LABS: Anion Gap 10.1 mmol/L (3-11); BUN 27 mg/dL (7-18); CO2 23.9 mmol/L (21.0-32.0); CREATININE 0.9 mg/dL (0.55-1.02); Calcium 9.6 mg/dL (8.5-10.1); Calculated LDL 160 mg/dL (<100); Chloride 105 mmol/L (98-107); Cholesterol 238 mg/dL (<200); Estimated GFR 76.92 (mL/min/1.73m2); FREE T4 1.01 ng/dL (0.76-1.46); Glucose 107 mg/dL (74-106); HDL Cholesterol 62 mg/dL (40-60); Potassium 4.1 mmol/L (3.5-5.1); Sodium 139 mmol/L (136-145); TSH 1.91 uIU/mL (0.36-3.74); Triglyceride 82 mg/dL (<150)
[2023-04-14 18:08] LABS: Hemoglobin A1C 5.4 % (<5.7)
== END 2023-04-14 15:08 | disposition home or self-care (01) ==
LOC: NCHCN 15:07
PROVIDERS: PCP Family Medicine; Visit Provider Physician Assistant
DX: E03.9 Hypothyroidism, unspecified (principal); R73.03 Prediabetes; E78.5 Hyperlipidemia, unspecified
CPT/HCPCS: 80048; 80061; 83036; 84439; 84443